=== PATIENT | male | born 1955 | race Caucasian/White ===

== ENCOUNTER → 2025-02-10 | Day surgery (SDC) | payer MEDICAID ==
[~2025-02-10] VITALS: Ht 162.6 cm; Wt 78.5 kg
[~2025-02-10] MED LIST: ATOR40TA70 PO; BUPIVACAINE HCL/PF 0.5% (5MG/ML) 10ML ONE; ETOMIDATE 2MG/ML 10ML VIAL IV ONE; FENTANYL CITRATE/PF 50MCG/ML 2ML VIAL ONE; HYDROMORPHONE HCL/PF 1MG/ML INJ IV PRN; LABETALOL 5MG/ML 4ML INJ IV PRN; LACTATED RINGERS 1,000 ML IV SCH; MEPERIDINE HCL/PF 25MG/ML CPJ IV PRN; MIDAZOLAM HCL 2 MG/2 ML VIAL ONE; ONDANSETRON HCL 4MG/2ML INJ IV PRN
== END | disposition home or self-care (01) ==
LOC: OR 07:41
PROVIDERS: ATTEND Surgery
DX: K60.30 Anal fistula, unspecified (principal); E78.5 Hyperlipidemia, unspecified; Z79.899 Other long term (current) drug therapy; Z98.890 Other specified postprocedural states
CPT/HCPCS: 46270; J3010; J0665; J3490; J2250